=== PATIENT | male | born 1950 | race Caucasian/White ===

== ENCOUNTER → 2017-02-01 | Outpatient (CLI) | payer MEDICARE, OTHER ==
[~2017-02-01] MED LIST: ALPRAZOLAM PO; ASPIRIN PO; DICYCLOMINE HCL20 MG PO; HYDROCODONE-APA1 T30 PO; METAMUCIL PO; NEURONTIN PO; VYTORIN 10/40 T1 TAB PO; WELLBUTRIN PO; ZYPREXA PO
--- NOTE | ~2017-02-01 | CT4 ---
[facility] A Service of [facility] RADIOLOGY TEXT RESULTS PATIENT: YOSEPH VALENCIA LOCATION: [facility] : 48 UNIT #: [id number] AGE: [address]: Jhonathan Kaur MD SEX: M ORDER DR: [id number] [facility] [address] [place], [place] [address] [id number] O MR#: [id number] Acc #: [id number] NAME: YOSEPH VALENCIA : 1950 SEX: M STUDY DATE/TIME: 02/01/2017 14:20 UNIT: [facility] ROOM: STUDY DESCRIPTION: CT Abd and Pelv Wo Cont Attending Physician: Jhonathan Kaur M.D. Referring Physician: Jhonathan Kaur M.D. Ordering Physician: Jhonathan Kaur M.D. Primary Care Physician: Jhonathan Kaur M.D. MEDICAL IMAGING REPORT This report is preliminary unless electronic signature is present EXAM CT abdomen and pelvis INDICATIONS Bilateral lower quadrant abdominal pain. Left lower quadrant pain for 2 weeks. Left flank pain for [address] of the abdomen and pelvis without contrast. Coronal and sagittal reconstructions were obtained. This CT exam was performed with one or more of the following radiation dose reduction techniques: automatic control, adjustment of mA and/or kV according to patient size, and iterative reconstruction. COMPARISON PET/CT 09/05/2011. FINDINGS ABDOMEN: There is emphysema in the lung bases. No urinary calculi. No hydronephrosis. The solid abdominal organs are within normal limits. Gallbladder is not distended. Bowel is not dilated. The abdominal aorta is normal in caliber. PELVIS: No pelvic mass. Bladder is unremarkable. No enlarged pelvic or inguinal lymph nodes. Patient has had prior inguinal hernia repair. No acute osseous abnormalities. IMPRESSION 1. No acute findings in the abdomen or pelvis. No urinary calculi. [facility] A Service of [facility] RADIOLOGY TEXT RESULTS PATIENT: YOSEPH VALENCIA LOCATION: [facility] : 48 UNIT #: [id number] AGE: [address]: Jhonathan Kaur MD SEX: M ORDER DR: STAT * RESULT Dictated by... Ilya Hernandez M.D. THIS IS AN ELECTRONICALLY VERIFIED REPORT Ilya Hernandez M.D. at 02/01/2017 4:26 PM RPDeysi/vicky TD: 02/01/2017 14:48 JOB #: [id number] MEDICAL IMAGING REPORT Page 1 of 1 COPY
== END | disposition home or self-care (01) ==
LOC: CCAT 13:20
DX: R10.30 Lower abdominal pain, unspecified (principal)
CPT/HCPCS: 74176